=== PATIENT | male | born 1965 | race Caucasian/White ===

== ENCOUNTER 2016-06-05 11:11 | Emergency (ER) | payer OTHER ==
[~2016-06-05] VITALS: Ht 175.3 cm; Wt 102.3 kg
[2016-06-05 11:15] VITALS: BP 219/108; PULSE 101; RESP 20; O2SAT 94
--- NOTE | 2016-06-05 12:50 | DRSVH ---
PROCEDURE: X-RAY RIGHT KNEE, THREE VIEWS ([id number]) INDICATIONS: knee pain TECHNIQUE: 3 views of the knee were acquired. COMPARISON: None. FINDINGS: Bones: No fractures or dislocations. There is slight lateral shift of the patella. No suspicious b bao lesions. Soft tissues: There is a small joint effusion. No suspicious soft tissue calcifications. IMPRESSION: 1. No fracture or dislocation. 2. Small joint effusion. If clinical concern persists, recommend further evaluation with MRI. Dictated by: Dorian Carvajal M.D. on 06/05/2016 at 12:47 Approved by: Dorian Carvajal M.D. on 06/05/2016 at 12:48
--- NOTE | 2016-06-05 12:51 | ED.REPORT ---
HPI-Extremity Problem Lower Date of Service Jun 05, 2016 ED Provider: Nic Higgins MD Dorian is an otherwise healthy 50-year-old male presenting with right knee pain. Patient reports falling directly on his right kneecap approximately one month ago. Noted increasing pain and swelling over the last 2 days. Despite this he went golfing yesterday, and this morning found the need to painful walk on. Reports good range of motion. Admits to clicking, popping, giving way while walking down stairs. Denies lateral instability. Denies fever chills sweats. Nursing Notes Stated Complaint: RIGHT KNEE PAIN Chief Complaint: Extremity Trauma Nursing Notes Reviewed: Yes Allergies: Coded Allergies: No Known Allergies (Unverified , 06/05/16) General Time Seen by MD: 12:47 Chief Complaint Leg injury right Past Medical History Past Medical History Notes: Denies Past Medical History Denies: Diabetes mellitus Review of Systems Review of Systems Note: Negative unless stated otherwise in history of present illness Physical Exam General: Well appearing, well developed, well nourished, no acute distress. Right hip: Nontender full range of motion. Right knee: Medial joint line tenderness. Tenderness with varus strain. Effusion and Loyd's cyst noted. No redness, heat. Full active range of motion. No laxity with varus/valgus strain, anterior and posterior drawer test noted. Negative apprehension sign, tibial tuberosity nontender. Right ankle: Nontender, full range of motion. DP and PT pulses appreciated, sensation intact Head: Atraumatic, normocephalic. Eyes: No scleral icterus or injection. No discharge. Vision grossly intact. ENT: Voice clear, hearing grossly intact. Respiratory: No respiratory distress, no increased work of breathing. Speaks in complete sentences. Skin: Warm and dry. Neurological: Grossly nonfocal. Psychological: alert and oriented. Speech appropriate, linear and logical. Behavior appropriate. Initial Vital Signs Vital Signs (First) Date Time Temp Pulse Resp B/P Pulse Ox O2 Delivery O2 Flow Rate FiO2 06/05/16 11:15 36.4 101 20 219/108 94 Room Air Interpretation & Diagnostics PROCEDURE: X-RAY RIGHT KNEE, THREE VIEWS ([id number]) INDICATIONS: knee pain IMPRESSION: 1. No fracture or dislocation. 2. Small joint effusion. If clinical concern persists, recommend further evaluation with MRI. Re-Eval/Medical Decision Med Decision/Clinical Course Otherwise healthy 50-year-old male presents with a one-month history of right knee pain. He reports that the pain began when he fell straight down on his kneecap. Admits clicking, popping, giving way. Reports that there is increased pain and swelling over the last few days and that he played golf yesterday. After his day of golf his knee is so painful he cannot walk on it. X-rays reveal no fractures. Physical examination reveals medial joint line tenderness, and effusion and Loyd's cyst. No laxity is noted. I believe this is soft tissue injury most likely a meniscal tear. I do not believe this is a fracture or spontaneously reduced knee dislocation. Discharged with orthophoric, instructions for [id number] analgesia, long knee immobilizer and crutch training. Provided return precautions. I discussed this with the patient and family, they understand and are comfortable with the plan. Discharge & Departure Impression: Primary Impression: Right medial knee pain Disposition: Home Discharge Condition All VS Reviewed: Yes Condition: Stable Patient Instructions: Splint Care (ED), Crutch Instructions (ED) Additional Instructions: Evaluation for right knee pain. X-rays are negative for fracture. History and physical are suggestive of a medial meniscus tear. We will place you in a knee immobilizer brace and give you crutches. These are for your comfort. you can bear weight as tolerated on the leg. The pain is best treated with 400 mg of ibuprofen (Advil, Motrin) every 6 hours, or 1000 mg of acetaminophen (Tylenol) every 6 hours. These drugs can be taken at the same time for more severe pain. I have given you a referral to an orthopedic surgeon. Please contact them this afternoon to arrange follow-up within the next week or so. Return to emergency department for any new or worsening symptoms including increasing redness, swelling, pain in the knee, a cold/numb foot or fever. Referrals: Blaine Burns DO EDSupervising Provider for APC: Nic Higgins MD Attending Statement Attending attestation: I saw this patient in conjunction with Allen Frances PA-C. I agree with the workup, evaluation, treatment and disposition. Nic Higgins MD copies to: Blaine Burns Beck O MD Jun 05, 2016 12:51 Allen Frances PA-C Jun 05, 2016 13:24
[2016-06-05 12:55] VITALS: BP 175/91
== END 2016-06-05 14:54 | disposition home or self-care (01) ==
LOC: SED 11:11
DX: M25.561 Pain in right knee (principal); W10.9XXA Fall (on) (from) unspecified stairs and steps, initial encounter; Y93.89 Activity, other specified; Y92.89 Other specified places as the place of occurrence of the external cause; Y99.8 Other external cause status; M25.461 Effusion, right knee